=== PATIENT | male | born 1955 | race Caucasian/White ===

== ENCOUNTER 2016-07-27 09:47 | Day surgery (SDC) | payer OTHER ==
[2016-07-27] VITALS (7 sets, daily range): BP systolic 99–124; BP diastolic 57–80; PULSE 70–91; RESP 14–25; O2SAT 92–96
[~2016-07-27] VITALS: Ht 182.9 cm; Wt 89.6 kg
[~2016-07-27 09:47] MED LIST: ASPI-973 PO; CeFAZolin Inj 2 GM in IV Premix 1 EACH IV ONE; Lactated Ringer's 1,000 ML IV SCH; MULT-1018 PO; glucosamine; lisinopril; simvastatin; vesicare; vitamin c
[2016-07-27] MEDS ORDERED: Dexamethasone 4 mg/mL Inj ONE (09:48)
[2016-07-27] MEDS ORDERED: fentaNYL-PF 50 mCg/mL 2 mL Inj ONE (09:48)
[2016-07-27] MEDS ORDERED: Propofol 10,000 mCg/mL 20 mL Inj ONE (09:48)
[2016-07-27] MEDS ORDERED: Lidocaine PF 1% 30 mL Inj ONE (09:48)
[2016-07-27] MEDS ORDERED: Ondansetron 2 mg/mL 2 mL Inj ONE (09:48)
[2016-07-27] MEDS ORDERED: Lactated Ringer's 1,000 ML IV ONE (10:25)
--- NOTE | 2016-07-27 11:47 | PCM.HPANE ---
Patient Data Date of Service: Jul 27, 2016 Surgeon Admitting Provider: Attending Provider:Slava Skinner DO Primary Care Physician:Bubba Cosme MD Other Provider:Miguel Amin Anesthesia Reason for Visit Right Slac Wrist Ulnar Styloid Non-Union, Right Ca Ht/WT & BMI Height (Feet): 6 Height (Inches): 0.00 Weight (Kilograms): 89.630 Body Mass Index 26.00 Allergies Coded Allergies: No Known Allergies (Unverified , 07/25/16) Past Anesthesia History Anesthesia History: Denies:: Abnormal Airway, Anesthesia Reactions, Difficult Intubation, Fam Anesthesia Reaction, Malignant Hyperthermia Diabetes History Hx Diabetes?: No MRSA MRSA: No Medications Hypertension Medication: Yes Home Meds Incl Beta Kings: No Reported Medications [vitamin c] No Conflict CheckUnknown Dose DAILY 07/25/16 [vesicare] No Conflict CheckUnknown Dose DAILY 07/25/16 [simvastatin] No Conflict CheckUnknown Dose DAILY 07/25/16 Multivitamin (Multi Vitamin Daily)1 Each Tablet1 Each PO DAILY 30 Days Ref 0 07/25/16 [lisinopril] No Conflict CheckUnknown Dose DAILY 07/25/16 [glucosamine] No Conflict CheckUnknown Dose DAILY 07/25/16 Aspirin 81 Mg [id number] Mg PO DAILY Ref 0 07/25/16 History HEENT History: Denies:: Abnormal Airway Cataracts Difficult Intubation Dysphagia Glaucoma Hearing Problem Sinus Problem TMJ Cardiovascular History: Positive for:: Hypertension Denies:: AICD Abdominal Aortic Aneurism Atrial Fibrillation Cardiac Surgery Chest Pain Congestive Heart Failure Coronary Artery Disease Heart Murmur Irregular Heartbeat Pacemaker Peripheral Vascular Rheumatic Fever Hx of Respiratory Problem?: No Respiratory History: Denies:: Asthma COPD Emphysema Oxygen Administration Pneumonia Tuberculosis Use of C-PAP Machine Use of Inhalers / NEBS Hx Neurologic Problems?: No Neurological History: Denies:: CVA Headaches Multiple Sclerosis Parkinson's Disease Seizures TIA Gastrointestinal History: Positive for:: Heartburn (occasional) Denies:: Cirrhosis Gall Bladder Disease Gastroesphageal Reflux Hepatitis Hiatal Hernia Liver Disease Hx of Problems?: No Genitourinary History: Denies:: Kidney Stones Urinary Tract Infection Male Hx: Denies:: Prostate Problems Scrotal Mass Testicular Surgery Skin History: Denies:: History Skin Disorders? Pressure Ulcers Hx Musculoskeletal Problems?: Yes Musculoskeletal History: Positive for:: Musculoskeletal Trauma (right hand current admission problem) Osteoarthritis Denies:: Back Injury Fibromyalgia Joint Replacement Hx of Psycho/Social Problems?: No Psycho Social History: Denies:: Anxiety Hx Depression Hx Surgeries?: Yes (knee scopes) Hx Any Other Health Problems?: Yes Other History: Denies:: Cancer Thyroid Disease History Blood Transfusions: Positive for:: Accept Blood Products? Denies:: Blood Transfusions Hx Diabetes: No Hx Alcohol Use: YesAlcoholic Drinks Per Day: couple beers nightly when not drivingHx Substance Use: NoHave You Smoked inLast 12 mo: Yes Stop/Bang S-Snoring: Do You Snore Loudly: No T-Tired: feel tired, fatigued: No O-Obsered: Observed not breath: No P-Blood Pressure: treated: Yes B- Body Mass Index > 35 kg/m2: Yes A- Age over 50: Yes N- Neck Large Circumference: No G- Gender Male: Yes VANITA Total Score: 4 VANITA Risk Assessment: High Risk, =/>3 Yes VANITA Category 4 OutPt Procedure: Yes Risk Assessment Category Category 1A: Patient has history of documented sleep apnea, and HAS NOT received any narcotic, sedative or anesthesia administration during this stay. Category 1B: Patient has history of documented sleep apnea, and HAS received any narcotic , sedative or anesthesia administration during this stay Category 2: Patient has SUSPECTED Obstructive Sleep Apnea, and HAS received any narcotic , sedative or anesthesia administration during this stay. Category 3: Patient has SUSPECTED Obstructive Sleep Apnea and HAS NOT received narcotic, sedative or anesthesia administration during this stay. Category 4: Outpatient in Procedural Areas with known sleep apnea or who screen positive for High Risk via the STOP/BANG questionnaire. Exam Exam Vital Signs Vital Signs Date Time Temp Pulse Resp B/P Pulse Ox O2 Delivery O2 Flow Rate FiO2 07/27/16 10:19 36.6 70 14 122/70 96 Room Air General Appearance: Alert, Oriented X3, Cooperative, No Acute Distress HEENT/AIRWAY: MP 2 Lungs: Clear to Auscultation, Normal Air Movement Heart: Exam Unremarkable, Regular Rate/Rhythm, No Murmurs/Rubs/Gallops Meds/Labs/Diagnostics Admission Meds Current Medications Lactated Ringer's (Lr) 1,000 ml @ ud STK-MED ONCE IV Last administered on 07/27t 10:25; Start 07/27/16 at 10:25; Stop 07/27/16 at 10:26; Status DC Plan Impression Patient chart reviewed, patient interviewed and anesthestic plan with risks, benefits, and alternatives discussed, and informed consent obtained. NPO Status: Confirmed before mn ASA Physical Status: ASA2 Mod Systemic Disease Anesthetic Plan: GA Bene/Risks/Altern/Consents: Yes HP Complete Prior to Induction: Yes Juan Manuel cAuña MD Jul 27, 2016 11:47
[2016-07-27] MEDS ORDERED: oxyCODONE-Acetamin 5-325 mg Tablet PO PRN (11:55)
[2016-07-27] MEDS ORDERED: Lactated Ringer's 1,000 ML IV SCH (12:24)
[2016-07-27] MEDS ORDERED: Lactated Ringer's 500 ML IV PRN (12:24)
[2016-07-27] MEDS ORDERED: Labetalol 5 mg/mL 4 mL Inj IV PRN (12:25)
[2016-07-27] MEDS ORDERED: HYDROmorphone 1 mg/mL Inj IVPUSH PRN (12:25)
[2016-07-27] MEDS ORDERED: MetoCLOpramide 5 mg/mL 2 mL Inj IVPUSH PRN (12:25)
[2016-07-27] MEDS ORDERED: fentaNYL-PF 50 mCg/mL 2 mL Inj IVPUSH PRN (12:25)
[2016-07-27] MEDS ORDERED: Phenylephrine 10,000 mCg/mL Inj IVPUSH PRN (12:25)
[2016-07-27] MEDS ORDERED: EPHEDrine Sulfate 50 mg/mL Inj IVPUSH PRN (12:25)
[2016-07-27] MEDS ORDERED: Atropine 0.4 mg/mL Inj IVPUSH PRN (12:25)
[2016-07-27] MEDS ORDERED: Ondansetron 2 mg/mL 2 mL Inj IVPUSH PRN (12:25)
[2016-07-27] MEDS ORDERED: hydrALAZINE 20 mg/mL Inj IVPUSH PRN (12:25)
[2016-07-27] MEDS ORDERED: Lidocaine 1%-Epi 1:100,000 20 mL Inj INFILTRATE ONE (12:45)
--- NOTE | 2016-07-27 16:03 | PCM.ANEP1 ---
Post Anesthesia Phase 1 PACU Phase 1 Assessment Date of Service: Jul 27, 2016 Vital Signs Vital Signs Date Time Temp Pulse Resp B/P Pulse Ox O2 Delivery O2 Flow Rate FiO2 07/27/16 15:48 36.6 90 16 117/67 95 Room Air 07/27/16 15:25 91 16 122/63 95 Room Air 07/27/16 15:20 90 18 114/57 94 Room Air 07/27/16 15:15 90 19 99/80 93 Room Air 07/27/16 15:10 36.9 90 25 124/61 92 Room Air 07/27/16 10:19 36.6 70 14 122/70 96 Room Air Anesthetic Administered: GA Level of Alertness: Awake, talking MARTINEZ's with Equal Strength: Yes Pain: No Nausea or Vomiting: No Oxygen Delivery: Room Air Lungs: Clear to Auscultation, Normal Air Movement Juan Manuel Acuña MD Jul 27, 2016 16:03
--- NOTE | 2016-07-27 16:04 | PCM.ANEP2 ---
Post Anesthesia Evaluation ASA/CMS Post Anesthesia Date of Service: Jul 27, 2016 VS in Patient's Normal Range?: Yes Resp Stable; Airway Patent?: Yes CV Function & Hydration Stable: Yes Mental Status Recovered?: Yes Pain control Satisfactory?: Yes N/V Control Satisfactory?: Yes Juan Manuel Acuña MD Jul 27, 2016 16:04
--- NOTE | 2016-07-28 23:37 | OP ---
[address] [address] OPERATIVE REPORT PATIENT: CHET GONZALEZ : 1955 MR#: [id number] ADMIT: 07/27/2016 JOB ID: [id number] DATE OF SURGERY: 07/27/2016 PREOPERATIVE DIAGNOSIS(ES): 1. Right wrist scaphoid nonunion advanced collapse. 2. Right carpal tunnel syndrome. POSTOPERATIVE DIAGNOSIS(ES): 1. Right wrist scaphoid nonunion advanced collapse. 2. Right carpal tunnel syndrome. PROCEDURE: 1. Right wrist proximal row carpectomy with total wrist arthrodesis. 2. Right wrist posterior interosseous nerve neurectomy. 3. Right open carpal tunnel release. SURGEON: Slava Skinner D.O. AMBULATORY CARE: Patrice Worley PA-C. The assistance of Patrice Worley PA-C, was necessary for help with retraction for the case as well as manipulation of the wrist during preparation of the PRC and arthrodesis. ANESTHESIA: General. HISTORY: The patient is a 61-year-old male that presents with a longstanding history of right wrist pain and stiffness. He presented with severe scaphoid nonunion advanced collapse. He attempted bracing as well as a steroid injection, but continued to have pain. He also demonstrated some numbness and tingling in the median nerve distribution which had failed bracing. With failure of conservative treatment, I gave the patient the option to proceed with a proximal row carpectomy followed by an arthrodesis and an open carpal tunnel release. I explained that due to the scaphoid nonunion, he had a very nonviable proximal pole that would unlikely be incorporated into the fusion mass, so by performing a proximal row carpectomy, the bones have a better chance of fusing as well as less fusion surfaces. There is also a chance of having to take distal radius bone graft, but with the bones removed, these could also be utilized as graft rather than taking from the distal radius. He understood the risks include, but are not limited to neurovascular injury, tendon injury, infection, failure of fixation, stiffness, persistent pain, which may require further intervention. Patient had all questions answered. Consent was signed and placed in the chart. PROCEDURE IN DETAIL: Patient was brought to the operating suite and placed supine on the operating room table. Surgical time-out was performed. Everyone was in agreement. After appropriate anesthesia was obtained, a right upper arm tourniquet was applied and the right upper extremity was prepped and draped in a sterile fashion. Right upper extremity was then exsanguinated and tourniquet inflated to 250 mmHg. The patient's carpal tunnel was approached first. A 2 cm longitudinal incision was made in line with the radial aspect of the ring finger and the ulnar aspect of the palmaris longus. The incision was kept distal to the wrist crease and proximal to Myers cardinal line. Subcutaneous tissues were dissected with bipolar electrocautery utilized to maintain hemostasis throughout the procedure. The palmar fascia was first identified and incised longitudinally in line with the skin incision, followed by exposure of the underlying transverse carpal ligament. The transverse carpal ligament was then released in its entirety to include the distal extent of the antebrachial fascia. Copious irrigation was performed followed by closure of the incision with 5-0 nylon in a simple interrupted fashion. Attention was then turned towards the proximal row carpectomy with the wrist arthrodesis. A dorsal longitudinal incision was made centered along the axis of the 3rd metacarpal and along the ulnar aspect of May's tubercle. Subcutaneous tissues were dissected, large skin flaps were then lifted. The extensor pollicis longus was identified within the third dorsal compartment and released and retracted radially as well as the second dorsal compartment tendons. The fourth dorsal compartment was identified. The posterior interosseous nerve was identified within the volar aspect of the compartment and a section of approximately 2 cm of the posterior interosseous nerve was transected. The fourth dorsal compartment was then retracted ulnarly exposing the capsule. An inverted T-shaped incision was made within the capsule to expose the underlying carpus. There was significant arthritic changes noted throughout the carpus. At the proximal pole, the scaphoid was easily removed with minimal dissection as well as the lunate, which was easily removed with very minimal dissection surrounding the volar capsule. The triquetrum required freeing up from the soft tissues before piecemeal removal. After the proximal row carpectomy was performed leaving the distal pole of the scaphoid, the proximal aspect of the distal pole was then transected with an osteotome to a horizontal plane. A matching plane was made to the radial styloid and a styloidectomy performed. Next, a bur as well as a series of osteotomes and curettes was utilized to prepare the cartilage surface of the distal radius as well as the proximal pole of the capitate and hamate and proximal pole of the distal aspect of the scaphoid. A small indentation within the distal radius was made for seating of the proximal pole of the capitate. After the joint surfaces were well prepared, the previously excised bones were removed and denuded of cartilage and the bones then morselized. There was significant amount of available bone graft, thus no graft was necessary from the distal radius. The wrist was reduced and a [employer] dorsal short bend wrist arthrodesis plate then applied to the dorsal aspect of the wrist. It was first held into place provisionally with a nonlocking screw within the most distal aspect of the plate into the 3rd metacarpal and an additional screw most proximal in a compression fashion to the distal radius shaft. Placement of the plate as well as the length of the screws were verified under fluoroscopy. After appropriate position was determined, completion of fixation was performed utilizing a combination of locking and nonlocking screws. Two additional screws 2.7 mm in diameter were utilized for the 3rd metacarpal as well as one into the capitate and the remaining screws proximally consisted of 3.5 mm cortical screws. Multiple views on fluoroscopy were utilized to verify reduction of the arthrodesis as well as appropriate placement of the hardware, appropriate length of all screws. The morselized bone graft was then packed within the arthrodesis site. Further irrigation was then performed followed by closure of the capsule with 0 Vicryl. The dorsal extensor retinaculum was found to be tight and releases of both radial and ulnar were necessary in order to pivot the retinacular flaps for adequate coverage. The retinaculum was then closed with 0 Vicryl in a [id number] fashion. Multiple 4-0 nylons were then used to close the dorsal skin. Patient was then placed into a well-padded, well-molded volar resting splint. ESTIMATED BLOOD LOSS: 25 cc. COMPLICATIONS: None. DISPOSITION: The patient tolerated the procedure well. Anesthesia was reversed. The patient was transferred to the PACU for recovery. SPECIMENS: A [employer] dorsal wrist arthrodesis plate with a short bend with multiple locking and nonlocking screws. 2.7 mm screws were placed within the metacarpal as well as the capitate and 3.5 mm screws for the distal radius and the shaft. POSTOPERATIVE PLAN: The patient will follow up in my office in two weeks. We will remove the patient's sutures at that time and transition him into a removable wrist brace and have him continue working on range of motion of the fingers. He understands that we will hold off on any strengthening until consolidation has been appreciated across the arthrodesis site. AJAY
== END 2016-07-27 23:59 | disposition home or self-care (01) ==
LOC: SAS 09:47
PROVIDERS: ATTEND Orthopaedic Surgery
DX: M25.531 Pain in right wrist (principal); M25.631 Stiffness of right wrist, not elsewhere classified; S52.611K Displaced fracture of right ulna styloid process, subsequent encounter for closed fracture with nonunion; G56.01 Carpal tunnel syndrome, right upper limb; M19.131 Post-traumatic osteoarthritis, right wrist; R20.0 Anesthesia of skin; R20.2 Paresthesia of skin; Z87.891 Personal history of nicotine dependence; Z79.82 Long term (current) use of aspirin
CPT/HCPCS: 25240; 25810; 76001; C1713; J0690; J1100; J2250; J2405; J3010; J7120